=== PATIENT | male | born 1945 | race Caucasian/White ===

== ENCOUNTER 2017-07-27 06:06 | Inpatient (IN) | payer MEDICARE, OTHER ==
[2017-07-23 12:43] LABS: Urine WBC None Seen /hpf (0 - 3)
[2017-07-23 12:59] LABS: Basophils # (auto) 0.1 uL; Basophils % (auto) 0.9 % (0.0-2.0); Eosinophils # (auto) 0.1 uL; Eosinophils % (auto) 2.2 % (0.0-7.0); Hematocrit 44.1 % (41.0-53.0); Hemoglobin 14.9 g/dL (13.5-17.5); Lymphocytes % (auto) 33.9 % (10.0-50.0); Mean Corpuscular Hemoglobin 31.7 pg (28.0-32.0); Mean Corpuscular Hgb Conc. 33.7 g/dL (32.0-36.0); Mean Corpuscular Volume 93.9 fL (80.0-100.0); Monocytes # (auto) 0.6 uL; Monocytes % (auto) 10.1 % (0.0-12.0); Neutrophils # (auto) 3.1 uL; Neutrophils % (auto) 52.9 % (37.0-80.0); Platelet Count (auto) 214 10^3/uL (140-450); Red Cell Distribution Width 13.5 % (11.8-14.3); White Blood Cell 5.8 10^3/uL (4.4-10.8)
[2017-07-23 13:13] LABS: INR 0.99 (0.9-1.15); Partial Thromboplastin Time 26.1 sec (22.64-33.71); Prothrombin Time 10.8 sec (9.37-12.3)
[2017-07-23 13:19] LABS: Urine Bacteria NONE SEEN /hpf (None Seen); Urine Blood Negative /uL (Negative); Urine Specific Gravity 1.012 (1.001-1.035)
[2017-07-23 13:24] LABS: Albumin 3.5 g/dL (3.4-5.0); BUN/Creatinine Ratio 11.7; Bilirubin, Total 1.6 mg/dL (0.2-1.0); Calcium 8.2 mg/dL (8.5-10.1); Potassium 4.2 mmol/L (3.5-5.1); Total Protein 7.2 g/dL (6.4-8.2)
[~2017-07-27] VITALS: Ht 190.5 cm; Wt 98.5 kg
[~2017-07-27 06:06] MED LIST: ASPI81TA27 PO; LEVO25TA6 PO; LISI2.5T47 PO; OMEP20CA74 PO; PRAV20TA3 PO
[2017-07-27] MEDS ORDERED: ceFAZolin 1GM/50ML 50 ML IV ONE ×2 (06:34→07:48)
[2017-07-27] MEDS ORDERED: LIDOCAINE W/ EPINEPHRINE 2% INJ 20ML VIAL ONE (07:27)
[2017-07-27] MEDS ORDERED: ROPIVACAINE 0.5% (5MG/ML) 20ML AMPULE IJ ONE (07:28)
[2017-07-27] MEDS ORDERED: MIDAZOLAM HCL 1MG/1ML-2 ML VIAL ONE ×2 (07:31→08:11)
[2017-07-27] MEDS ORDERED: MORPHINE SULF(PF) 0.5MG/ML 10ML VIAL ONE (07:31)
[2017-07-27] MEDS ORDERED: STERILE WATER 10 ML ONE (07:36)
[2017-07-27] MEDS ORDERED: ePHEDrine SULFATE 50 MG/ML AMP ONE (07:36)
[2017-07-27] MEDS ORDERED: PROPOFOL 10 MG/ML 20 ML IV ONE ×4 (08:04→10:28)
[2017-07-27] MEDS ORDERED: diphenhdrAMINE HCL 50 MG/1 ML VL ONE (08:11)
[2017-07-27] MEDS ORDERED: ePHEDrine SULFATE 50 MG/ML AMP IV PRN (08:30)
[2017-07-27] MEDS ORDERED: NALOXONE HCL 0.4 MG/ML VIAL IV PRN ×2 (08:30)
[2017-07-27] MEDS ORDERED: ONDANSETRON HCL 4 MG/2 ML VIAL IV PRN ×2 (08:30→12:15)
[2017-07-27] MEDS ORDERED: METOCLOPRAMIDE HCL 5MG/ml INJ 2ml VIAL IV ONE (08:30)
[2017-07-27] MEDS ORDERED: hydrALAZINE HCL 20 MG/ML VL IV PRN (08:30)
[2017-07-27] MEDS ORDERED: MORPHINE SULFATE 4 MG/ML SYR/VIAL IV PRN (08:30)
[2017-07-27] MEDS ORDERED: ONDANSETRON HCL 4 MG/2 ML VIAL IV ONE (08:30)
[2017-07-27] MEDS ORDERED: TEMAZEPAM 15 MG CAP PO PRN (12:15)
[2017-07-27] MEDS ORDERED: HYDROmorphone HCL 2 MG/ML VL IV PRN (12:15)
[2017-07-27] MEDS ORDERED: ACETAMINOPHEN 325 MG TAB PO PRN (12:15)
[2017-07-27] MEDS ORDERED: HYDROcodone-ACET 10/325MG TAB PO PRN (12:15)
[2017-07-27] MEDS ORDERED: FAMOTIDINE 20 MG TAB PO ONE (13:15)
[2017-07-27] MEDS ORDERED: PANTOPRAZOLE 40 MG TAB PO ONE (13:15)
[2017-07-27] MEDS: diphenhdrAMINE HCL 50 MG/1 ML VL IV PRN ×3 (13:55→22:10)
[2017-07-27 13:56] VITALS: BP 126/75
[2017-07-27] MEDS: LACTATED RINGER'S 1,000 ML IV SCH (13:57)
[2017-07-27] MEDS: SODIUM CHLOR 0.9% PF (SALINE LOCK) 10ML VIAL IV SCH ×2 (13:57→21:34)
[2017-07-27] MEDS: ceFAZolin 1GM/50ML 50 ML IV SCH ×2 (13:57→19:47)
[2017-07-27 16:59] VITALS: BP 126/77
[2017-07-27] MEDS: NALBUPHINE HCL 10 MG/1ml INJECTION IV PRN (17:13)
[2017-07-27] MEDS: KETOROLAC TROMETH 30 MG/ML 1ML VIAL IV PRN (18:03)
[2017-07-27] MEDS: DOCUSATE SOD 100 MG CAP PO SCH (21:34)
[2017-07-27] MEDS: PRAVASTATIN SODIUM 20 MG TAB PO SCH (21:34)
[2017-07-27] MEDS ORDERED: oxyCODONE ER 10 MG TAB PO SCH (22:00)
[2017-07-27 22:57] VITALS: BP 113/64
[2017-07-28] MEDS: ceFAZolin 1GM/50ML 50 ML IV SCH (01:55)
[2017-07-28] MEDS: diphenhdrAMINE HCL 50 MG/1 ML VL IV PRN (05:12)
[2017-07-28] MEDS: SODIUM CHLOR 0.9% PF (SALINE LOCK) 10ML VIAL IV SCH ×3 (05:28→21:24)
[2017-07-28 05:46] VITALS: BP 104/54
[2017-07-28] MEDS: LEVOTHYROXINE SODIUM 25 MCG TAB PO SCH (06:14)
[2017-07-28 08:00] VITALS: BP 102/58
[2017-07-28] MEDS: LACTATED RINGER'S 1,000 ML IV SCH (08:09)
[2017-07-28 08:22] LABS: Hematocrit 39.8 % (41.0-53.0); Hemoglobin 13.6 g/dL (13.5-17.5)
[2017-07-28 08:43] LABS: Albumin 3.3 g/dL (3.4-5.0); BUN/Creatinine Ratio 15.3; Bilirubin, Total 2.5 mg/dL (0.2-1.0); Calcium 8.1 mg/dL (8.5-10.1); Potassium 4.4 mmol/L (3.5-5.1); Total Protein 6.4 g/dL (6.4-8.2)
[2017-07-28 09:00] VITALS: BP 102/58
[2017-07-28] MEDS: ENOXAPARIN SOD 40 MG/0.4 ML SYRINGE SC SCH (09:35)
[2017-07-28] MEDS: KETOROLAC TROMETH 30 MG/ML 1ML VIAL IV PRN (09:35)
[2017-07-28] MEDS: FAMOTIDINE 20 MG TAB PO SCH (09:36)
[2017-07-28] MEDS: PANTOPRAZOLE 40 MG TAB PO SCH (09:36)
[2017-07-28] MEDS: DOCUSATE SOD 100 MG CAP PO SCH ×2 (09:36→21:24)
[2017-07-28] MEDS: LISINOPRIL 5 MG TAB PO SCH (09:37)
[2017-07-28] MEDS: NALBUPHINE HCL 10 MG/1ml INJECTION IV PRN (11:59)
[2017-07-28 13:00] VITALS: BP 115/67
[2017-07-28] MEDS: MORPHINE SULFATE 4 MG/ML SYR/VIAL IV PRN ×2 (16:15→20:57)
[2017-07-28 17:00] VITALS: BP 117/75
[2017-07-28] MEDS: PRAVASTATIN SODIUM 20 MG TAB PO SCH (21:24)
[2017-07-28 22:00] VITALS: BP 119/69
[2017-07-29] MEDS: MORPHINE SULFATE 4 MG/ML SYR/VIAL IV PRN (02:33)
[2017-07-29] MEDS: LACTATED RINGER'S 1,000 ML IV SCH (03:44)
[2017-07-29 05:22] LABS: Hematocrit 36.4 % (41.0-53.0); Hemoglobin 12.3 g/dL (13.5-17.5)
[2017-07-29] MEDS: SODIUM CHLOR 0.9% PF (SALINE LOCK) 10ML VIAL IV SCH ×2 (05:31→14:00)
[2017-07-29 05:42] LABS: BUN/Creatinine Ratio 14.6; Calcium 8.3 mg/dL (8.5-10.1); Magnesium 2.5 mg/dL (1.6-2.6); Potassium 4.6 mmol/L (3.5-5.1)
[2017-07-29] MEDS: KETOROLAC TROMETH 30 MG/ML 1ML VIAL IV PRN (05:45)
[2017-07-29 05:49] VITALS: BP 121/61
[2017-07-29] MEDS: LEVOTHYROXINE SODIUM 25 MCG TAB PO SCH (06:08)
[2017-07-29 08:00] VITALS: BP 102/58
[2017-07-29 09:00] VITALS: BP 112/63
[2017-07-29] MEDS: FAMOTIDINE 20 MG TAB PO SCH (10:33)
[2017-07-29] MEDS: PANTOPRAZOLE 40 MG TAB PO SCH (10:33)
[2017-07-29] MEDS: DOCUSATE SOD 100 MG CAP PO SCH (10:34)
[2017-07-29] MEDS: ENOXAPARIN SOD 40 MG/0.4 ML SYRINGE SC SCH (10:34)
[2017-07-29] MEDS: LISINOPRIL 5 MG TAB PO SCH (10:34)
[2017-07-29 13:00] VITALS: BP 115/71
[2017-07-29 16:48] VITALS: BP 112/63
[2017-07-29 16:54] VITALS: BP 100/50
== END 2017-07-29 17:30 | disposition home health service (06) | DRG 470 ==
LOC: SUR 06:06 → WEST WING 06:07
PROVIDERS: ADMIT Orthopaedic Surgery; ATTEND Internal Medicine
PROC: 0MBN0ZZ Excision of Right Knee Bursa and Ligament, Open Approach (ICD-10-PCS; 2017-07-27)
PROC: 0SBC0ZZ Excision of Right Knee Joint, Open Approach (ICD-10-PCS; 2017-07-27)
PROC: 0KNQ0ZZ Release Right Upper Leg Muscle, Open Approach (ICD-10-PCS; 2017-07-27)
PROC: 0QSD0ZZ Reposition Right Patella, Open Approach (ICD-10-PCS; 2017-07-27)
PROC: 0SRC0J9 Replacement of Right Knee Joint with Synthetic Substitute, Cemented, Open Approach (ICD-10-PCS; principal; 2017-07-27 07:32)
DX: M17.11 Unilateral primary osteoarthritis, right knee (principal); D64.9 Anemia, unspecified; E83.51 Hypocalcemia; M70.41 Prepatellar bursitis, right knee; E03.9 Hypothyroidism, unspecified; E78.5 Hyperlipidemia, unspecified; I12.9 Hypertensive chronic kidney disease with stage 1 through stage 4 chronic kidney disease, or unspecified chronic kidney disease; M24.561 Contracture, right knee; K21.9 Gastro-esophageal reflux disease without esophagitis; N18.2 Chronic kidney disease, stage 2 (mild); Z80.9 Family history of malignant neoplasm, unspecified; Z79.899 Other long term (current) drug therapy
CPT/HCPCS: 36415; 73562; 80048; 80053; 81001; 83735; 85014; 85018; 85025; 85610; 85730; 86850; 86900; 86901; 97163; J0690; J1885; J2250; J2704

== ENCOUNTER 2020-03-11 06:19 | Day surgery (SDC) | payer MEDICARE, OTHER ==
[~2020-03-11] VITALS: Ht 191.8 cm; Wt 82.6 kg
[~2020-03-11 06:19] MED LIST changes: -ASPI81TA27 PO; -LISI2.5T47 PO; +LOSA25TA38 PO; +METO25TA5 PO
[2020-03-11] MEDS ORDERED: IODIXANOL 320MG/ML 100ML BTL IV ONE (07:20)
[2020-03-11] MEDS ORDERED: LIDOCAINE 2%HCL (LOCAL ANESTH.) INJ 20ML MDV ONE (07:20)
[2020-03-11] MEDS ORDERED: VERAPAMIL 2.5MG/ML INJ 2ML VIAL IV ONE (07:28)
[2020-03-11] MEDS ORDERED: ANGIOMAX 250 MG VIAL IV ONE (07:28)
[2020-03-11] MEDS ORDERED: SODIUM CHL 0.9% 0 ML ONE (07:29)
[2020-03-11] MEDS ORDERED: fentaNYL CITRATE 100 MCG/2 ML VL ONE (07:29)
[2020-03-11] MEDS ORDERED: MIDAZOLAM HCL 1MG/1ML-2 ML VIAL ONE (07:29)
[2020-03-11] MEDS ORDERED: HEPARIN SODIUM (PORCINE) 5000 UNITS/ML 1ML VIAL ONE (07:53)
[2020-03-11] MEDS ORDERED: ONDANSETRON HCL 4 MG/2 ML VIAL IV PRN (08:30)
== END 2020-03-11 11:31 | disposition home or self-care (01) ==
LOC: CATH 06:19
PROVIDERS: ATTEND Specialist
DX: R94.39 Abnormal result of other cardiovascular function study (principal); J43.9 Emphysema, unspecified; I10 Essential (primary) hypertension; E78.5 Hyperlipidemia, unspecified; K21.9 Gastro-esophageal reflux disease without esophagitis; I50.20 Unspecified systolic (congestive) heart failure; I44.7 Left bundle-branch block, unspecified; K76.0 Fatty (change of) liver, not elsewhere classified; G25.81 Restless legs syndrome; Z79.899 Other long term (current) drug therapy; Z87.891 Personal history of nicotine dependence; Z98.890 Other specified postprocedural states; Z20.828 Contact with and (suspected) exposure to other viral communicable diseases
CPT/HCPCS: 93458; C1887; C1894; J1644; J2250; J3010; Q9967; U0003; 99152